=== PATIENT | female | born 1985 | race Caucasian/White ===

== ENCOUNTER → 2024-07-10 16:19 | Outpatient (REF) | payer BC, SELFPAY | LOC: MRI 3T 16:19 | PROVIDERS: ATTENDING PHYSICIAN Nurse Practitioner Family | DX: Z15.01 Genetic susceptibility to malignant neoplasm of breast (principal); Z12.39 Encounter for other screening for malignant neoplasm of breast | CPT/HCPCS: 77049; A9585 ==

== ENCOUNTER → 2024-09-23 08:54 | Outpatient (REF) | payer BC, SELFPAY | LOC: WDC 08:54 | PROVIDERS: ATTENDING PHYSICIAN Surgery; FAMILY PHYSICIAN Nurse Practitioner Family | DX: R92.2 Inconclusive mammogram (principal) | CPT/HCPCS: 76641 ==

== ENCOUNTER → 2024-09-24 14:53 | Outpatient (REF) | payer BC, SELFPAY | LOC: PNTC 14:53 | PROVIDERS: ATTENDING PHYSICIAN Obstetrics & Gynecology | DX: Z36.82 Encounter for antenatal screening for nuchal translucency (principal); Z36.0 Encounter for antenatal screening for chromosomal anomalies | CPT/HCPCS: 36415; 76801; 76813 ==

== ENCOUNTER → 2024-10-27 16:05 | Outpatient (REF) | payer BC, SELFPAY | LOC: PNTC 16:05 | PROVIDERS: ATTENDING PHYSICIAN Obstetrics & Gynecology | DX: O09.819 Supervision of pregnancy resulting from assisted reproductive technology, unspecified trimester (principal); O99.210 Obesity complicating pregnancy, unspecified trimester; O09.529 Supervision of elderly multigravida, unspecified trimester | CPT/HCPCS: 76805 ==

== ENCOUNTER → 2024-11-19 16:00 | Outpatient (REF) | payer BC, SELFPAY | LOC: PNTC 16:00 | PROVIDERS: ATTENDING PHYSICIAN Obstetrics & Gynecology | DX: O09.529 Supervision of elderly multigravida, unspecified trimester (principal); O09.819 Supervision of pregnancy resulting from assisted reproductive technology, unspecified trimester; O99.210 Obesity complicating pregnancy, unspecified trimester | CPT/HCPCS: 76811; 76817 ==

== ENCOUNTER → 2024-12-11 13:07 | Outpatient (REF) | payer BC, SELFPAY | LOC: WDC 13:07 | PROVIDERS: ATTENDING PHYSICIAN Surgery; FAMILY PHYSICIAN Nurse Practitioner Family | DX: R92.30 Dense breasts, unspecified (principal); Z15.89 Genetic susceptibility to other disease | CPT/HCPCS: 76641 ==

== ENCOUNTER → 2024-12-17 15:59 | Outpatient (REF) | payer BC, SELFPAY | LOC: PNTC 15:59 | PROVIDERS: ATTENDING PHYSICIAN Student in an Organized Health Care Education/Training Program | DX: O09.819 Supervision of pregnancy resulting from assisted reproductive technology, unspecified trimester (principal); O99.285 Endocrine, nutritional and metabolic diseases complicating the puerperium; O99.212 Obesity complicating pregnancy, second trimester; O09.522 Supervision of elderly multigravida, second trimester; O24.410 Gestational diabetes mellitus in pregnancy, diet controlled | CPT/HCPCS: 76816 ==

== ENCOUNTER → 2025-01-14 16:27 | Outpatient (REF) | payer BC, SELFPAY | LOC: PNTC 16:27 | PROVIDERS: ATTENDING PHYSICIAN Obstetrics & Gynecology | DX: O09.529 Supervision of elderly multigravida, unspecified trimester (principal); O09.819 Supervision of pregnancy resulting from assisted reproductive technology, unspecified trimester; O99.210 Obesity complicating pregnancy, unspecified trimester; O99.280 Endocrine, nutritional and metabolic diseases complicating pregnancy, unspecified trimester; O24.410 Gestational diabetes mellitus in pregnancy, diet controlled | CPT/HCPCS: 76816 ==

== ENCOUNTER 2025-01-19 18:56 | Observation (INO) | payer BC, SELFPAY ==
[2025-01-19 19:32] LABS: Glucose - Point of Care 76 mg/dl (70-99)
[2025-01-19] MEDS: TYLENOL 1000 MG PO (19:34)
[2025-01-19] MEDS: LR 1000 IV (19:35)
[2025-01-19 19:54] LABS: Hematocrit 36.3 % (37.0-47.0); Hemoglobin 11.7 g/dL (12.0-16.0); Mean Corp Hgb Conc. 32.2 g/dL (33.0-37.0); Mean Corpuscular Volume 75.9 fL (81.0-99.0); Nucleated Red Blood Cells % 0 %; Platelet Count 326 10^3/uL (130-400); Red Cell Dist. Width 14.7 % (11.5-14.5)
[2025-01-19 20:00] VITALS: BP 117/80; BMI 40.6
[2025-01-19 20:23] LABS: Urine Character Slightly Cloudy (Clear)
[2025-01-19 20:32] LABS: Urine Squamous Cell >30 /LPF (Few)
[2025-01-19 20:34] LABS: Urine Red Blood Cell 0-2 /HPF (0-2)
[2025-01-19 21:10] LABS: ALT (SGPT) 12 U/L (0-35); AST (SGOT) 13 U/L (14-36); Albumin 3.2 g/dl (3.5-5.0); Alkaline Phosphatase 94 U/L (38-126); Blood Urea Nitrogen 5 mg/dl (7-17); Calcium 9.1 mg/dl (8.4-10.2); Carbon Dioxide 22 mmol/L (22-30); Chloride 107 mmol/L (98-107); Estimated Creatinine Clearance 124 ml/min; Glucose 101 mg/dl (70-99); Potassium 4.2 mmol/L (3.5-5.1); Sodium 133 mmol/L (135-145); Total Protein 5.8 g/dl (6.3-8.2); eGFR > 60.00
[2025-01-19 22:00] LABS: Glucose - Point of Care 105 mg/dl (70-99)
[2025-01-19] MEDS: PRENATAL PLUS 1 TABLET PO (22:54)
[2025-01-20] MEDS: LR 1000 IV (02:36)
[2025-01-20] MEDS: SYNTHROID 75 MCG PO (06:03)
[2025-01-20 06:10] LABS: Glucose - Point of Care 94 mg/dl (70-99)
[2025-01-20] MEDS: LOW STRENGTH ASPIRIN 81 MG PO (08:09)
[2025-01-20] MEDS: TYLENOL 1000 MG PO (08:09)
== END 2025-01-20 10:05 | disposition home or self-care (01) ==
LOC: LDRP 18:56
PROVIDERS: ADMITTING PHYSICIAN Obstetrics & Gynecology
DX: O26.893 Other specified pregnancy related conditions, third trimester (principal); R51.9 Headache, unspecified; O24.410 Gestational diabetes mellitus in pregnancy, diet controlled; Z3A.29 29 weeks gestation of pregnancy; O99.213 Obesity complicating pregnancy, third trimester; O09.523 Supervision of elderly multigravida, third trimester; O09.813 Supervision of pregnancy resulting from assisted reproductive technology, third trimester; O99.283 Endocrine, nutritional and metabolic diseases complicating pregnancy, third trimester; R03.0 Elevated blood-pressure reading, without diagnosis of hypertension; O12.13 Gestational proteinuria, third trimester; E03.9 Hypothyroidism, unspecified; Z79.890 Hormone replacement therapy; Z14.1 Cystic fibrosis carrier; Z88.1 Allergy status to other antibiotic agents; Z88.0 Allergy status to penicillin; Z88.2 Allergy status to sulfonamides
CPT/HCPCS: 59025; 80053; 81003; 81015; 82570; 82962; 84156; 85025; 86850; 86900; 86901; G0378

== ENCOUNTER → 2025-02-03 16:01 | Outpatient (REF) | payer BC, SELFPAY | LOC: PNTC 16:01 | PROVIDERS: ATTENDING PHYSICIAN Obstetrics & Gynecology | DX: O99.210 Obesity complicating pregnancy, unspecified trimester (principal); O09.529 Supervision of elderly multigravida, unspecified trimester; O09.819 Supervision of pregnancy resulting from assisted reproductive technology, unspecified trimester; O24.419 Gestational diabetes mellitus in pregnancy, unspecified control | CPT/HCPCS: 59025; 76815 ==

== ENCOUNTER → 2025-02-10 07:13 | Outpatient (REF) | payer BC, SELFPAY | LOC: PNTC 07:13 | PROVIDERS: ATTENDING PHYSICIAN Obstetrics & Gynecology | DX: O99.210 Obesity complicating pregnancy, unspecified trimester (principal); O09.529 Supervision of elderly multigravida, unspecified trimester; O09.819 Supervision of pregnancy resulting from assisted reproductive technology, unspecified trimester; O24.419 Gestational diabetes mellitus in pregnancy, unspecified control | CPT/HCPCS: 59025; 76816; 76818 ==

== ENCOUNTER → 2025-02-10 08:40 | Outpatient (REF) | payer BC, SELFPAY | LOC: WDC 08:40 | PROVIDERS: ATTENDING PHYSICIAN Surgery; FAMILY PHYSICIAN Nurse Practitioner Family | DX: R92.30 Dense breasts, unspecified (principal) | CPT/HCPCS: 76641 ==

== ENCOUNTER → 2025-02-17 07:29 | Outpatient (REF) | payer BC, SELFPAY | LOC: PNTC 07:29 | PROVIDERS: ATTENDING PHYSICIAN Obstetrics & Gynecology | DX: O99.213 Obesity complicating pregnancy, third trimester (principal); O09.523 Supervision of elderly multigravida, third trimester; O24.410 Gestational diabetes mellitus in pregnancy, diet controlled; O09.813 Supervision of pregnancy resulting from assisted reproductive technology, third trimester | CPT/HCPCS: 59025; 76815 ==

== ENCOUNTER → 2025-02-24 07:38 | Outpatient (REF) | payer BC, SELFPAY | LOC: PNTC 07:38 | PROVIDERS: ATTENDING PHYSICIAN Obstetrics & Gynecology | DX: O99.210 Obesity complicating pregnancy, unspecified trimester (principal); O09.529 Supervision of elderly multigravida, unspecified trimester; O09.819 Supervision of pregnancy resulting from assisted reproductive technology, unspecified trimester; O24.419 Gestational diabetes mellitus in pregnancy, unspecified control | CPT/HCPCS: 59025; 76815 ==

== ENCOUNTER → 2025-03-03 07:38 | Outpatient (REF) | payer BC, SELFPAY | LOC: PNTC 07:38 | PROVIDERS: ATTENDING PHYSICIAN Obstetrics & Gynecology | DX: O99.210 Obesity complicating pregnancy, unspecified trimester (principal); O09.529 Supervision of elderly multigravida, unspecified trimester; O24.429 Gestational diabetes mellitus in childbirth, unspecified control; O09.819 Supervision of pregnancy resulting from assisted reproductive technology, unspecified trimester | CPT/HCPCS: 59025; 76815 ==

== ENCOUNTER 2025-03-08 15:52 | Observation (INO) | payer BC, SELFPAY ==
[2025-03-08 16:41] VITALS: BP 150/81; BMI 41.2
[2025-03-08 16:45] LABS: Hematocrit 37.1 % (37.0-47.0); Hemoglobin 12.1 g/dL (12.0-16.0); Mean Corp Hgb Conc. 32.6 g/dL (33.0-37.0); Mean Corpuscular Volume 77.8 fL (81.0-99.0); Platelet Count 231 10^3/uL (130-400); Red Cell Dist. Width 15.8 % (11.5-14.5)
[2025-03-08 16:50] LABS: ALT (SGPT) 15 U/L (0-35); AST (SGOT) 20 U/L (14-36); Albumin 3.2 g/dl (3.5-5.0); Alkaline Phosphatase 203 U/L (38-126); Blood Urea Nitrogen 7 mg/dl (7-17); Calcium 8.8 mg/dl (8.4-10.2); Carbon Dioxide 22 mmol/L (22-30); Chloride 108 mmol/L (98-107); Estimated Creatinine Clearance > 125 ml/min; Glucose 63 mg/dl (70-99); Potassium 4.3 mmol/L (3.5-5.1); Sodium 135 mmol/L (135-145); Total Protein 6.1 g/dl (6.3-8.2); eGFR > 60.00
== END 2025-03-08 18:00 | disposition home or self-care (01) ==
LOC: PNTC-IN 15:52
PROVIDERS: ADMITTING PHYSICIAN Student in an Organized Health Care Education/Training Program
DX: O26.893 Other specified pregnancy related conditions, third trimester (principal); R03.0 Elevated blood-pressure reading, without diagnosis of hypertension; O09.523 Supervision of elderly multigravida, third trimester; Z3A.36 36 weeks gestation of pregnancy; O24.410 Gestational diabetes mellitus in pregnancy, diet controlled; O99.213 Obesity complicating pregnancy, third trimester; O09.813 Supervision of pregnancy resulting from assisted reproductive technology, third trimester; O99.283 Endocrine, nutritional and metabolic diseases complicating pregnancy, third trimester; E03.9 Hypothyroidism, unspecified; D56.3 Thalassemia minor; Z14.1 Cystic fibrosis carrier; Z14.8 Genetic carrier of other disease; Z79.890 Hormone replacement therapy; Z88.1 Allergy status to other antibiotic agents; Z88.0 Allergy status to penicillin; Z88.2 Allergy status to sulfonamides; Z79.82 Long term (current) use of aspirin
CPT/HCPCS: 80053; 82570; 84156; 85027; 86850; 86900; 86901; G0378

== ENCOUNTER 2025-03-10 18:17 | Inpatient (IN) | payer BC, SELFPAY ==
[2025-03-10 17:17] VITALS: BP 162/84; BMI 42.9
[2025-03-10 17:49] LABS: Urine Character Clear (Clear)
[2025-03-10 18:05] LABS: ALT (SGPT) 15 U/L (0-35); AST (SGOT) 19 U/L (14-36); Albumin 3.2 g/dl (3.5-5.0); Alkaline Phosphatase 203 U/L (38-126); Blood Urea Nitrogen 7 mg/dl (7-17); Calcium 8.6 mg/dl (8.4-10.2); Carbon Dioxide 20 mmol/L (22-30); Chloride 109 mmol/L (98-107); Estimated Creatinine Clearance > 125 ml/min; Glucose 65 mg/dl (70-99); Hematocrit 37.6 % (37.0-47.0); Hemoglobin 12.2 g/dL (12.0-16.0); Mean Corp Hgb Conc. 32.4 g/dL (33.0-37.0); Mean Corpuscular Volume 75.5 fL (81.0-99.0); Platelet Count 227 10^3/uL (130-400); Potassium 4.2 mmol/L (3.5-5.1); Red Cell Dist. Width 15.9 % (11.5-14.5); Sodium 135 mmol/L (135-145); Total Protein 5.9 g/dl (6.3-8.2); eGFR > 60.00
[2025-03-10] MEDS: TYLENOL 1000 MG PO (18:45)
[2025-03-10] MEDS: LR 1000 IV (19:49)
[2025-03-10] MEDS: MAGNESIUM SULFATE 100 IV (19:49)
[2025-03-10] MEDS: MAGNESIUM SULFATE 40 GRAM 1000 IV (20:08)
[2025-03-10] MEDS: CYTOTEC 25 MICROGRAM VAG (20:52)
[2025-03-10] MEDS: TRANDATE 200 MG PO (21:04)
[2025-03-10 21:16] LABS: Glucose - Point of Care 106 mg/dl (70-99)
[2025-03-10] MEDS: STADOL 1 MG IV (22:31)
[2025-03-11 00:59] LABS: Magnesium 4.1 mg/dl (1.6-2.3)
[2025-03-11] MEDS: VANCOCIN 540 MG IV ×2 (01:00→09:16)
[2025-03-11] MEDS: SUBLIMAZE 100 MCG EPIDURAL (01:04)
[2025-03-11] MEDS: FENTANYL/BUPIVACAINE 100 EPIDURAL ×2 (01:04→09:33)
[2025-03-11 01:05] LABS: Glucose - Point of Care 75 mg/dl (70-99)
[2025-03-11] MEDS: SYNTHROID 75 MCG PO (05:59)
[2025-03-11 06:00] LABS: ALT (SGPT) 15 U/L (0-35); AST (SGOT) 18 U/L (14-36); Albumin 2.8 g/dl (3.5-5.0); Alkaline Phosphatase 185 U/L (38-126); Blood Urea Nitrogen 6 mg/dl (7-17); Calcium 7.6 mg/dl (8.4-10.2); Carbon Dioxide 24 mmol/L (22-30); Chloride 109 mmol/L (98-107); Estimated Creatinine Clearance > 125 ml/min; Glucose 113 mg/dl (70-99); Magnesium 4.7 mg/dl (1.6-2.3); Potassium 4.8 mmol/L (3.5-5.1); Sodium 135 mmol/L (135-145); Total Protein 5.4 g/dl (6.3-8.2); eGFR > 60.00
[2025-03-11] MEDS: PITOCIN 30 UNITS/NSS 500 ML IV ×2 (06:00→14:35)
[2025-03-11 06:21] LABS: Hematocrit 34.5 % (37.0-47.0); Hemoglobin 11.0 g/dL (12.0-16.0); Mean Corp Hgb Conc. 31.9 g/dL (33.0-37.0); Mean Corpuscular Volume 78.4 fL (81.0-99.0); Platelet Count 211 10^3/uL (130-400); Red Cell Dist. Width 15.9 % (11.5-14.5)
[2025-03-11] MEDS: TYLENOL 1000 MG PO ×2 (06:21→13:43)
[2025-03-11 07:22] LABS: Glucose - Point of Care 90 mg/dl (70-99)
[2025-03-11 09:06] LABS: Glucose - Point of Care 90 mg/dl (70-99)
[2025-03-11] MEDS: LR 1000 IV (10:28)
[2025-03-11] MEDS: REGLAN 10 MG IV (10:29)
[2025-03-11] MEDS: BENADRYL 12.5 MG IV (10:29)
[2025-03-11 11:10] LABS: Glucose - Point of Care 86 mg/dl (70-99)
[2025-03-11 13:08] LABS: Glucose - Point of Care 81 mg/dl (70-99)
[2025-03-11] MEDS: TRANEXAMIC ACID 100 IV (14:35)
[2025-03-11] MEDS: MAGNESIUM SULFATE 40 GRAM 1000 IV (15:09)
[2025-03-11] MEDS: MOTRIN 600 MG PO (17:13)
[2025-03-11] MEDS: TYLENOL 650 MG PO ×2 (18:12→22:53)
[2025-03-11] MEDS: COLACE 100 MG PO (20:05)
[2025-03-11] MEDS: PRENATAL PLUS 1 TABLET PO (22:40)
[2025-03-12] MEDS: LR 1000 IV (02:50)
[2025-03-12] MEDS: MOTRIN 600 MG PO ×4 (04:06→23:17)
[2025-03-12] MEDS: TYLENOL 650 MG PO ×4 (04:07→20:05)
[2025-03-12] MEDS: SYNTHROID 75 MCG PO (05:56)
[2025-03-12 06:26] LABS: Hematocrit 29.0 % (37.0-47.0); Hemoglobin 9.2 g/dL (12.0-16.0)
[2025-03-12] MEDS: COLACE 100 MG PO ×2 (07:53→20:05)
[2025-03-12] MEDS: PROCARDIA XL (EXTENDED RELEASE) 30 MG PO (09:09)
[2025-03-12] MEDS: MAGNESIUM SULFATE 40 GRAM 1000 IV (10:39)
[2025-03-12] MEDS: TRANDATE 20 MG IV (11:14)
[2025-03-12 11:36] LABS: Mean Corp Hgb Conc. 32.3 g/dL (33.0-37.0); Mean Corpuscular Volume 76.4 fL (81.0-99.0); Nucleated Red Blood Cells % 0 %; Platelet Count 227 10^3/uL (130-400); Red Cell Dist. Width 16.2 % (11.5-14.5)
[2025-03-12 12:30] LABS: ALT (SGPT) 14 U/L (0-35); AST (SGOT) 20 U/L (14-36); Albumin 2.7 g/dl (3.5-5.0); Alkaline Phosphatase 166 U/L (38-126); Blood Urea Nitrogen 6 mg/dl (7-17); Calcium 7.5 mg/dl (8.4-10.2); Carbon Dioxide 23 mmol/L (22-30); Chloride 109 mmol/L (98-107); Estimated Creatinine Clearance > 125 ml/min; Glucose 88 mg/dl (70-99); Potassium 4.5 mmol/L (3.5-5.1); Sodium 134 mmol/L (135-145); Total Protein 5.4 g/dl (6.3-8.2); eGFR > 60.00
[2025-03-12 13:50] LABS: Syphilis/T. pallidum Ab Reflex Negative (Negative)
[2025-03-12] MEDS: MAGNESIUM SULFATE 40 GRAM IV (19:22)
[2025-03-12] MEDS: PRENATAL PLUS 1 TABLET PO (23:15)
[2025-03-13] MEDS: SYNTHROID 75 MCG PO (06:10)
[2025-03-13] MEDS: FEOSOL 325 MG PO (08:06)
[2025-03-13] MEDS: TRANDATE 200 MG PO ×2 (08:06→12:40)
[2025-03-13] MEDS: COLACE 100 MG PO ×2 (08:06→20:15)
[2025-03-13] MEDS: MOTRIN 600 MG PO ×2 (08:16→23:30)
[2025-03-13] MEDS: TYLENOL 650 MG PO (08:17)
[2025-03-13] MEDS: TRANDATE 400 MG PO (20:15)
[2025-03-13] MEDS: PRENATAL PLUS 1 TABLET PO (20:23)
[2025-03-14] MEDS: SYNTHROID 75 MCG PO (06:08)
[2025-03-14] MEDS: COLACE 100 MG PO (08:28)
[2025-03-14] MEDS: TRANDATE 400 MG PO (08:28)
[2025-03-14] MEDS: FEOSOL 325 MG PO (08:28)
== END 2025-03-14 12:06 | disposition home or self-care (01) | DRG 807 ==
LOC: LDRP 18:17
PROVIDERS: Obstetrics & Gynecology; ADMITTING PHYSICIAN Obstetrics & Gynecology; ATTENDING PHYSICIAN Obstetrics & Gynecology
PROC: 0U7C7DJ Dilation of Cervix with Intraluminal Device, Temporary, Via Natural or Artificial Opening (ICD-10-PCS; 2025-03-10)
PROC: 3E0P7VZ Introduction of Hormone into Female Reproductive, Via Natural or Artificial Opening (ICD-10-PCS; 2025-03-10)
PROC: 10E0XZZ Delivery of Products of Conception, External Approach (ICD-10-PCS; 2025-03-11)
PROC: 0KQM0ZZ Repair Perineum Muscle, Open Approach (ICD-10-PCS; 2025-03-11)
PROC: 10907ZC Drainage of Amniotic Fluid, Therapeutic from Products of Conception, Via Natural or Artificial Opening (ICD-10-PCS; 2025-03-11)
DX: O14.14 Severe pre-eclampsia complicating childbirth (principal); Z37.0 Single live birth; O24.420 Gestational diabetes mellitus in childbirth, diet controlled; Z3A.36 36 weeks gestation of pregnancy; O70.1 Second degree perineal laceration during delivery; O76 Abnormality in fetal heart rate and rhythm complicating labor and delivery; O99.214 Obesity complicating childbirth; O69.81X0 Labor and delivery complicated by cord around neck, without compression, not applicable or unspecified; O99.284 Endocrine, nutritional and metabolic diseases complicating childbirth; E03.9 Hypothyroidism, unspecified; N97.9 Female infertility, unspecified; D56.3 Thalassemia minor; R51.9 Headache, unspecified; Z88.1 Allergy status to other antibiotic agents; Z88.0 Allergy status to penicillin; Z88.2 Allergy status to sulfonamides; Z79.890 Hormone replacement therapy; Z14.1 Cystic fibrosis carrier
CPT/HCPCS: 59025; 76816; 80053; 81003; 82570; 82962; 83735; 84156; 85025; 85027; 86780; 86850; 86900; 86901; 88307

== ENCOUNTER → 2025-05-26 10:55 | Outpatient (REF) | payer OTHER, SELFPAY | LOC: OHS 10:55 | PROVIDERS: ATTENDING PHYSICIAN Nurse Practitioner Family | DX: Z23 Encounter for immunization (principal) | CPT/HCPCS: 36415; 86480; 86706; 86735; 86762; 86765; 86787 ==